=== PATIENT | male | born 1985 | race Caucasian/White ===

== ENCOUNTER 2023-11-21 03:47 | Emergency (ER) | payer BC ==
[2023-11-21 04:52] LABS: CORONAVIRUS COVID-19 NAA NEGATIVE (NEGATIVE); INFLUENZA A NAA NEGATIVE (NEGATIVE); INFLUENZA B NAA NEGATIVE (NEGATIVE); RESPIRATORY SYNCYTIAL VIR NAA NEGATIVE (NEGATIVE)
== END 2023-11-21 06:01 | disposition home or self-care (01) ==
LOC: MW.ED 03:47
DX: J02.0 Streptococcal pharyngitis (principal); Z88.0 Allergy status to penicillin; Z79.899 Other long term (current) drug therapy; Z75.8 Other problems related to medical facilities and other health care
CPT/HCPCS: 0241U; 87651; 99283